=== PATIENT | female | born 1970 ===

== ENCOUNTER 2021-02-16 07:46 | Emergency (ER) | payer OTHER ==
[~2021-02-16] VITALS: Ht 162.6 cm; Wt 79.8 kg
[2021-02-16] MEDS ORDERED: COZAAR50 MG PO (08:15)
[2021-02-16] MEDS ORDERED: UTIX PO (13:25)
[2021-02-16] MEDS ORDERED: MACRODANTIN100 M1 PO (13:25)
== END 2021-02-16 13:58 ==
LOC: ER 07:46
DX: N39.0 Urinary tract infection, site not specified (principal); R30.0 Dysuria; R10.2 Pelvic and perineal pain